=== PATIENT | female | born 2000 | race Caucasian/White ===

== ENCOUNTER 2025-04-26 21:27 | Emergency (ER) | payer OTHER, SELFPAY ==
[2025-04-26 21:41] VITALS: BP 128/87
[2025-04-26 22:20] LABS: Hematocrit 42.3 % (37.0-47.0); Hemoglobin 15.7 g/dL (12.0-16.0); Mean Corp Hgb Conc. 37.1 g/dL (33.0-37.0); Mean Corpuscular Volume 86.3 fL (81.0-99.0); Nucleated Red Blood Cells % 0 %; Platelet Count 262 10^3/uL (130-400); Red Cell Dist. Width 11.6 % (11.5-14.5)
[2025-04-26 22:34] LABS: HCG, Serum Qualitative Screen Negative
[2025-04-26 22:43] LABS: ALT (SGPT) 25 U/L (0-35); AST (SGOT) 29 U/L (14-36); Albumin 4.4 g/dl (3.5-5.0); Alkaline Phosphatase 48 U/L (38-126); Blood Urea Nitrogen 17 mg/dl (7-17); Calcium 10.1 mg/dl (8.4-10.2); Carbon Dioxide 26 mmol/L (22-30); Chloride 104 mmol/L (98-107); Glucose 123 mg/dl (70-99); Potassium 3.8 mmol/L (3.5-5.1); Sodium 136 mmol/L (135-145); Total Protein 7.0 g/dl (6.3-8.2); eGFR > 60.00
[2025-04-26 22:53] LABS: Troponin I < 0.012 ng/ml
[2025-04-27 00:05] VITALS: BP 114/75
[2025-04-27 01:32] VITALS: BP 119/77
--- NOTE | 2025-04-27 02:22 | ED.GENMED ---
History of Present Illness
General
Chief Complaint: Chest Pain
Time Seen by Provider: 04/27/25 02:22
History of Present Illness
History of Present Illness:
FOCUSED PAST MEDICAL HISTORY
- The patient has a history of iron deficiency anemia and Avelina's thyroiditis
REVIEW OF OLD RECORDS
- Hemoglobin is 11.4 in 2020
Note:
CHIEF COMPLAINT(S)
Abdominal pain.
HISTORY OF PRESENT ILLNESS
The patient is a 24-year-old female who presents with abdominal pain starting the previous night, described as discomfort in the upper stomach that worsens upon deep inspiration. The pain radiates to the back and shoulders but is currently more
localized to the stomach. The patient reports that pressing on the upper abdomen exacerbates the discomfort, particularly around the xiphoid process. There is no associated dyspnea or prior symptoms similar to those experienced during a visit in
2020 when screened for a blood clot, which returned negative results. The patient recently received an iron infusion, resulting in improved hemoglobin levels (from 11 to 15). The patient has used ibuprofen which relieved back discomfort but not the
stomach pain. There is no increased stress or anxiety reported and no use of medications for stomach acid. The patient mentions mild nausea but no vomiting. There is also a history of constipation. The patient denies swelling in the legs.
EXTERNAL RECORDS REVIEWED
According to previous ER records from 2020, a screening test for blood clots (D-dimer) was negative and cardiac tests showed no signs of myocardial infarction.
CHRONIC MEDICAL CONDITIONS SIGNIFICANTLY AFFECTING CARE
Chronic conditions affecting care include constipation, which is an ongoing issue for the patient.
PHYSICAL EXAM
- General: Well appearing in no distress
- HEENT: Moist oral mucosa
- Cardiovascular: No murmurs, normal heart rate, regular rhythm, some mild lower anterior chest wall tenderness
- Pulmonary: No respiratory distress, breath sounds are clear and equal
- Abdomen: Soft with no peritoneal signs, some minimal tenderness in the upper/epigastric region and near the xiphoid
- Neurologic: Excellent strength all extremities, no coordination deficits
- Psychiatric: Appropriate mental status, normal insight and judgement, appears somewhat anxious
- Extremities: Nontender, no edema, moves all extremities equally
- Skin: No rash, no lesions
PLAN
A D-dimer test will be ordered to rule out any potential blood clot despite its low likelihood. An intravenous line will be established to administer intravenous famotidine and ketorolac to address the possibility of stomach acid involvement and
musculoskeletal pain, respectively.
DIFFERENTIAL DIAGNOSIS
The Differential Diagnosis includes, in no particular order and is not limited to:
- Gastroesophageal reflux disease (GERD)
- Gastritis
- Peptic ulcer disease
- Musculoskeletal strain
- Cholecystitis
- Pancreatitis
- Anxiety or stress-related discomfort
- Pulmonary embolism (unlikely but screened)
- Myocardial ischemia (unlikely for age)
SUMMARY OF ENCOUNTER
The patient presented to the emergency department with abdominal pain localized to the upper stomach, exacerbated by breathing and pressure. Previous history and external records indicated a similar presentation without evidence of serious cardiac
issues or blood clotting. After discussing options, a D-dimer test was ordered for reassurance. The patient received an intravenous course of famotidine for potential acid-related causes and ketorolac for pain management.
INDEPENDENT REVIEW OF LABS AND INTERPRETATION OF TESTS
My independent review included the consideration for additional D-dimer testing given the elevated heart rate and patient history.
MEDICATION RECONCILIATION
Intravenous famotidine and ketorolac have been administered.
MEDICAL DECISION MAKING
- Complexity of Data Reviewed: Chronic conditions affecting care include constipation.
- Data:
- Category 1: Reviewed prior ER records and considered external records on blood clots and cardiac work-up.
- Category 2: Independent interpretation of abdominal examination findings.
- Risk: Prescription medications were administered. Considered admission but planned for outpatient management with reassurance and follow-up.
DIAGNOSIS
- Abdominal pain, unspecified (R10.9)
- Constipation, unspecified (K59.00)
RADIOLOGY
- Chest x-ray shows no acute abnormality
EKG
- Sinus 105, normal axis, nonspecific ST abnormality
LABS
- hCG negative, troponin less than 0.012, CBC unremarkable and hemoglobin higher than last time currently at 15.7
UPDATE
-SUMMARY OF ENCOUNTER
The patient, a 24-year-old female, visited the emergency department due to upper abdominal pain radiating to the back and shoulders, which worsened with deep breathing. A thorough evaluation ruled out major conditions such as heart attack and blood
clots through a negative screening test for blood clots (D-dimer). Treatments involved intravenous administration of famotidine for potential acid-related causes and ketorolac for pain management. The decision was made to discharge the patient with
consideration of her symptoms possibly stemming from musculoskeletal inflammation, anxiety, or acid reflux rather than cardiac or serious conditions.
DISPOSITION
Discharge
ASSESSMENT
The patients symptoms were likely related to musculoskeletal inflammation of the chest wall or anxiety. The possibility of reflux was also considered, but major issues such as blood clots or cardiac problems were ruled out.
EMERGENCY TREATMENTS ADMINISTERED
Famotidine and ketorolac were administered intravenously.
PLAN
The plan involves outpatient management with the recommendation of [id number] medications like ibuprofen (Motrin) and possibly a two-week course of omeprazole if symptoms persist. Encourage the patient to return if symptoms worsen or do not
resolve.
FOLLOW-UP INSTRUCTIONS
Follow-up with primary care is recommended to reassess symptoms, especially if they persist or worsen.
MEDICATION RECONCILIATION
Administered: Intravenous famotidine, ketorolac.
MEDICAL DECISION MAKING
-Complexity of Data Reviewed: Chronic conditions affecting care include constipation. Differential diagnosis includes gastroesophageal reflux disease (GERD), gastritis, peptic ulcer disease, musculoskeletal strain, cholecystitis, pancreatitis,
anxiety or stress-related discomfort, pulmonary embolism, myocardial ischemia.
-Data:
Category 1: Reviewed prior ER records, including tests for blood clots and cardiac work-up. Conducted an abdominal examination.
-Risk:
Consideration of Admission/Observation: Escalation of care including admission/observation was considered given the complexity and risk of the patients presenting complaint, exam findings, and/or their underlying comorbidities. However, ultimately I
feel the patient is safe for outpatient management with close follow-up. Reasoning: Work-up reassuring, does not reveal any acute life/organ-threatening processes, patients symptoms well controlled upon reevaluation, reexamination is reassuring,
vitals are stable, patient agreeable with discharge, reliable for follow-up.
DIAGNOSIS
- Chest pain
Costochondritis
Past History
Past History
ED Past Medical History: Other (Iron deficiency anemia)
ED Past Surgical History: None
Social History
Tobacco: Non-smoker
Alcohol: None
Drug: None
Phy Exam
Physical Exam
Physical Exam:
See HPI
Scores
Heart Score for Chest Pain Patients
STEMI patient?: Not applicable
History: Highly Suspicious
Course
Orders/Labs/Results
Orders:
Orders
04/26/25 21:45
Electrocardiogram (*1) Urgent
Reason for Study: Chest Pain
EKG- Treatment ONCE
Test Result ONCE
04/26/25 21:48
Complete Blood Count/With Diff Urgent
Comprehensive Metabolic Panel Urgent
HCG, Serum Qualitative Screen Urgent
Comment: Notify provider if positive test present
Troponin I Urgent
04/27/25 00:08
Chest [CR Chest - 2 Views ] Urgent
Comment:
Reason For Exam: bilateral lower chest pain
04/27/25 02:36
Famotidine [Pepcid] 20 mg IV NOW STA
Ketorolac [Toradol] 15 mg IV NOW STA
04/27/25 03:20
D-Dimer Urgent
Abnormal Lab Results
04/26/25
21:48
MCH 32.0 H pg
(27.0-31.0)
MCHC 37.1 H g/dL
(33.0-37.0)
Absolute Monos (auto) 0.8 H 10^3/uL
(0.1-0.6)
Monocytes % 10.3 H %
(1.7-9.3)
Glucose 123 H mg/dl
(70-99)
04/26/25 21:48
04/26/25 21:48
Vital Signs
Initial and Last Documented VS:
Initial Vital Signs
Temp Pulse Resp BP Pulse Ox
37.1 C 116 20 128/87 98
04/26/25 21:41 04/26/25 21:41 04/26/25 21:41 04/26/25 21:41 04/26/25 21:41
Last Documented Vital Signs
Temp Pulse Resp BP Pulse Ox
37.1 C 93 20 114/75 98
04/27/25 00:05 04/27/25 00:05 04/27/25 00:05 04/27/25 00:05 04/27/25 02:24
*Pulse Oximetry
SaO2: 98
Oxygen Mode of Delivery: Room air
Patient hypoxic: no
*Critical Care Note
Total Time (30-74mins, 75-104mins- exclusive of procedures): Not Applicable
ED Attending Note
-
Portions of this chart may have been created with voice recognition software.� Occasional wrong word or��sound alike� substitutions may have occurred due to the inherent limitations of voice recognition software.
Discharge Plan
Departure
Patient Disposition: Home (Routine Discharge)
Date of Disposition: 04/27/25
Time of Disposition: 04:15
Patient with high blood pressure during this ER visit?: Yes
Discharge Problem:
Chest pain
Instructions: Chest Pain PCP Follow Up, BLOOD PRESSURE
Prescriptions:
No Action
polyethylene glycol 3350 238 GM powder
17 gm PO DAILY
psyllium husk [Metamucil Fiber (aspartame)] 1 PACKET powder in packet
1 packet PO DAILY
Lactobacillus acidophilus [Probiotic] 1 EACH capsule
1 ea PO DAILY
Referrals:
Gurjit Garcia MD [Family Provider, Internal Medicine]
Activity Restrictions/Additional Instructions:
Take 3-4 over the counter Motrin every 8 hours with food for a few days. I also recommend a two week course of over the counter Omeprazole for the possibility of stomach acid excess. Follow up with PMD.
Interventions
Interventions:
*Risk Screen - Suicide Last Done: 04/26/25 21:41
*General Assessment Last Done: 04/27/25 01:41
*Neglect/Abuse Screening Last Done: 04/26/25 21:41
*ED- Fall Risk Assessment Last Done: 04/27/25 00:05
*ED COVID-19 Vaccine History Last Done: 04/27/25 00:05
ED- Cardiac Assessment Last Done: 04/27/25 01:41
Discharge Date and Time
Print Language: TOGOLESE
[2025-04-27 03:11] VITALS: BP 112/80
[2025-04-27] MEDS: TORADOL 15 MG IV (03:18)
[2025-04-27] MEDS: PEPCID 20 MG IV (03:19)
[2025-04-27 03:42] LABS: D-Dimer 0.46 ug/mlFEU (0.00-0.50)
[2025-04-27 04:00] VITALS: BP 106/72
[2025-04-27 04:23] VITALS: BP 103/70
== END 2025-04-27 04:36 | disposition home or self-care (01) ==
LOC: EMR 21:27
PROVIDERS: Emergency Medicine; EMERGENCY PHYSICIAN Emergency Medicine; FAMILY PHYSICIAN Internal Medicine
DX: R07.9 Chest pain, unspecified (principal); R03.0 Elevated blood-pressure reading, without diagnosis of hypertension; K59.00 Constipation, unspecified; E06.3 Autoimmune thyroiditis
CPT/HCPCS: 99284; 96374; 96375; 71046; 80053; 84484; 84703; 85025; 85379; 93005